=== PATIENT | female | born 1970 | race American Indian/Alaskan Native ===

== ENCOUNTER 2017-05-28 08:49 | Outpatient (CLI) | payer BC ==
--- NOTE | 2017-05-28 14:23 | Mammography Report ---
BILATERAL DIGITAL DIAGNOSTIC MAMMOGRAM with CAD and BILATERAL BREAST ULTRASOUND: 05/28/17 CLINICAL: Right palpable breast lump. COMPARISON:None. FINDINGS: The breasts are heterogeneously dense, which may obscures small masses. Bilateral upper-outer Ol[place] asymmetries. There is a suggestion of multiple right upper outer circumscribed masses or cysts. A palpable marker correlates with one of the circumscribed densities.No architectural distortion or special calcifications.. Ultrasound of the right breast (including all four quadrants and the retroareolar area) was performed and demonstrated multiple benign cysts. A cyst at 11:30 o'clock 2 cm from the nipple correlates with the palpable lump and measures 3.6 x 3.6 x 2.7 cm. A complex cyst with a fluid debris level at 11 o'clock 4 cm from the nipple measures 1.9-1.7 x 1.8 cm. A complex cyst at 9 o'clock 6 cm from the nipple measures 3.2 x 1.6 x 2.7 cm. A cyst at 9 o'clock 4 cm from the nipple measures 3.0 x 2.4 x 3.0 cm. A cyst at 10 o'clock 8 cm from the nipple measures 1.4 x 0.8 x 1.3 cm. No solid mass or shadowing. Ultrasound of the left breast (including all four quadrants and the retroareolar area) was performed and demonstrated a bilobed cyst at 2 o'clock 7 cm from nipple measuring 4.6 x 3.8 x 1.4 cm. No solid mass or shadowing. IMPRESSION: Bilateral benign cysts and no suspicious finding. BI-RADS CATEGORY: 2 -- Benign RECOMMENDATION: Clinical follow-up of the palpable area and routine mammographic screening in one year. ACR BI-RADS MAMMOGRAPHIC CODES: 0 = Needs additional imaging evaluation; 1 = Negative; 2 = Benign; 3 = Probably benign; 4 = Suspicious; 5 = Malignant; 6 = Known biopsy-proven malignancy COMMENT: 1. Dense breast tissue, i.e., adenosis, fibrocystic changes, etc., may obscure an underlying neoplasm. 2. Approximately 10% of cancers are not detected with mammography. 3. A negative mammography report should not delay biopsy if a clinically suspicious mass is present. COMMENT: Patient follow-up letters are generated by our [employer] application.
== END 2017-05-28 08:50 | disposition home or self-care (01) ==
LOC: SPVWC 08:49
PROVIDERS: ATTEND Nurse Practitioner Family
DX: N60.01 Solitary cyst of right breast (principal); N60.02 Solitary cyst of left breast; N63 Unspecified lump in breast
CPT/HCPCS: 76641; G0204; 77066